=== PATIENT | female | born 1955 | race Caucasian/White ===

== ENCOUNTER 2018-07-15 07:24 | Day surgery (SDC) | payer MEDICARE, OTHER ==
[~2018-07-15 07:24] MED LIST: Lactated Ringers 1,000 ML IV SCH; Sodium Chloride 0.9% 10 ML Syringe FLUSH PRN
[2018-07-15] MEDS ORDERED: fentaNYL 100 MCG/2 ML SDV ONE (09:21)
[2018-07-15] MEDS ORDERED: Propofol 200 MG/20 ML SDV ONE ×2 (09:21→11:02)
[2018-07-15 12:30] VITALS: BP 123/76
--- NOTE | 2018-07-15 15:01 | OR ---
DATE OF SURGERY: 07/15/2018. PRE-OPERATIVE DIAGNOSIS: History of colon polyps. Last colonoscopy in 07/2015 revealed 3 tiny polyps. Previous to that, the patient had 12 polyps in 2014, 9 of which were removed using hot snare. No family history of colon cancer or colon polyps. POST-OPERATIVE DIAGNOSES: 1. Four small polyps removed all using cold forceps. A. 2 mm polyp at 80 cm. B. 3 mm polyp at 60 cm. C. 3 mm polyp x2 at 50 cm. 2. Moderate sigmoid diverticulosis. PROCEDURE: Colonoscopy with polypectomy x4 using cold forceps. SURGEON: Glen Rosario M.D. ANESTHESIA: Monitored anesthesia care. BOWEL PREP: Good. DESCRIPTION OF PROCEDURE: Cece is a 62-year-old female, who was brought to the endoscopy suite after discussing risks and benefits of the procedure. Informed consent was obtained for conscious sedation and colonoscopy with or without biopsy and/or polypectomy. We also discussed possibility of missed lesions. Pre-procedure exam was unremarkable. IV, oxygen, and monitors were placed. The patient was placed in the left lateral decubitus position. Sedation was administered and a digital rectal exam was performed which was unremarkable. Colonoscope was passed into the rectum and slowly advanced all the way to the cecum. Cecum was viewed and photographed. The colonoscope was slowly withdrawn and the mucosa was closed observed in a direct circumferential manner. The ascending colon was unremarkable. The transverse colon revealed 2 mm polyp at 80 cm, and 3 mm polyp at 60 cm, both removed using cold forceps. The descending colon revealed 3 mm polyp x2 at 50 cm, both removed using cold forceps. The sigmoid colon was remarkable for moderate diverticulosis. Retroflexion was performed and rectal mucosa was unremarkable. Scope was removed. The patient tolerated the procedure well. The patient was monitored until that baseline status. Discharge instructions were reviewed and the patient was discharged in good condition. COMPLICATIONS: None. TOTAL TIME: 20 minutes. ESTIMATED BLOOD LOSS: About 1 mL. RECOMMENDATIONS/FOLLOW-UP: We will await results of path report to determine ideal followup interval. I would like to kindly thank Tamera Matson for this referral. DMB: 07/15/2018 11:31:47 MODL: 07/15/2018 12:08:29 /[id number] CAESAR
== END 2018-07-15 12:30 ==
LOC: VM.SDS 07:24
PROVIDERS: ATTEND Family Medicine
DX: Z12.11 Encounter for screening for malignant neoplasm of colon (principal); D12.4 Benign neoplasm of descending colon; D12.5 Benign neoplasm of sigmoid colon; K57.30 Diverticulosis of large intestine without perforation or abscess without bleeding; I10 Essential (primary) hypertension; E78.5 Hyperlipidemia, unspecified; R73.01 Impaired fasting glucose; E66.01 Morbid (severe) obesity due to excess calories; Z68.41 Body mass index [BMI] 40.0-44.9, adult; Z86.010 Personal history of colon polyps; Z87.891 Personal history of nicotine dependence; Z79.82 Long term (current) use of aspirin; Z79.899 Other long term (current) drug therapy
CPT/HCPCS: 00811; 45380; J2704; J3010; J7120

== ENCOUNTER 2021-10-17 06:52 | Day surgery (SDC) | payer MEDICARE, OTHER ==
[~2021-10-17 06:52] MED LIST changes: -Sodium Chloride 0.9% 10 ML Syringe FLUSH PRN
[2021-10-17] MEDS ORDERED: Sodium Chloride 0.9% 10 ML Syringe FLUSH PRN (07:00)
[2021-10-17] MEDS: Lactated Ringers 1,000 ML IV SCH (07:17)
[2021-10-17] MEDS ORDERED: Propofol 200 MG/20 ML SDV ONE ×2 (08:13→08:38)
[2021-10-17] MEDS ORDERED: fentaNYL 100 MCG/2 ML SDV ONE (08:13)
[2021-10-17 09:00] VITALS: PULSE 62
[2021-10-17 09:11] VITALS: BP 117/61
== END 2021-10-17 10:09 | disposition home or self-care (01) ==
LOC: VM.SDS 06:52
PROVIDERS: ATTEND Family Medicine
DX: Z12.11 Encounter for screening for malignant neoplasm of colon (principal); D12.3 Benign neoplasm of transverse colon; D12.4 Benign neoplasm of descending colon; K57.30 Diverticulosis of large intestine without perforation or abscess without bleeding; K64.9 Unspecified hemorrhoids; E66.01 Morbid (severe) obesity due to excess calories; I10 Essential (primary) hypertension; E11.9 Type 2 diabetes mellitus without complications; E78.5 Hyperlipidemia, unspecified; M81.0 Age-related osteoporosis without current pathological fracture; Z98.890 Other specified postprocedural states; Z86.010 Personal history of colon polyps; Z87.891 Personal history of nicotine dependence; Z68.41 Body mass index [BMI] 40.0-44.9, adult
CPT/HCPCS: 82947; 88305; J2704; J3010; J7120

== ENCOUNTER 2022-12-12 14:23 | Inpatient (IN) | payer MEDICARE, OTHER ==
[2022-12-12] MEDS ORDERED: Docusate Sodium 100 MG Cap PO PRN (15:53)
[2022-12-12] MEDS ORDERED: Ondansetron 4 MG Tab.DIS PO PRN (15:53)
[2022-12-12] MEDS: Albuterol/Ipratropium 3.0-0.5 MG/3 ML Neb Soln NEB SCH ×3 (16:37→22:50)
[2022-12-12] MEDS ORDERED: REMDESIVIR 200 MG in Sodium Chloride 0.9% 250 ML IV ONE (17:24)
[2022-12-12] MEDS ORDERED: REMDESIVIR 100 MG in Sodium Chloride 0.9% 100 ML IV SCH (17:30)
[2022-12-12 17:33] LABS: HCO3 VENOUS,POC 34 mmol/L (22-29); O2 SATURATION VENOUS,POC 73 %; PCO2 VENOUS,POC 57 mmHg (41-51); PH VENOUS,POC 7.38 pH (7.32-7.43); PO2 VENOUS,POC 40 mmHg
[2022-12-12] MEDS ORDERED: Potassium Chloride 10 MEQ Tab.ER PO ONE (17:48)
[2022-12-12] MEDS ORDERED: Clobetasol 0.05% Crm 30 GM Tube TOP PRN (18:25)
[2022-12-12] MEDS: Furosemide 40 MG Tab PO SCH (18:56)
[2022-12-12] MEDS: dexAMETHasone 2 MG, dexAMETHasone 4 MG PO SCH ×2 (18:56)
[2022-12-12] MEDS: Doxycycline Monohydrate 100 MG Cap PO SCH ×2 (18:57→22:45)
[2022-12-12] MEDS ORDERED: Iopamidol 755 Mg/ML 100 ML Bottle IVPUSH ONE (21:10)
[2022-12-13] MEDS: Albuterol/Ipratropium 3.0-0.5 MG/3 ML Neb Soln NEB SCH ×5 (02:07→18:47)
[2022-12-13 08:13] LABS: BASOPHILS PERCENT AUTO 0.2 % (0.2-1.2); HEMATOCRIT 36.9 % (33.0-47.0); HEMOGLOBIN 11.5 g/dL (12.0-16.0); IMMATURE GRAN ABSOLUTE AUTO 0.01 x10^3/uL (0.00-0.07); MEAN CORPUSCULAR HEMOGLOBIN 28.2 pg (26.0-32.0); MEAN CORPUSCULAR HGB CONC 31.2 g/dL (32.0-36.0); MEAN CORPUSCULAR VOLUME 90.4 fL (78.0-93.0); MONOCYTES ABSOLUTE AUTO 0.4 x10^3/uL (0.0-0.8); MONOCYTES PERCENT AUTO 6.7 % (2.0-11.0); NEUTROPHILS ABSOLUTE AUTO 5.1 x10^3/uL (1.8-7.7); NEUTROPHILS PERCENT AUTO 86.9 % (50.0-80.0); PLATELET COUNT,PLT 286 x10^3/uL (130-400); RED BLOOD CELL COUNT 4.08 x10^6/uL (4.00-5.50); WHITE BLOOD CELL COUNT,WBC 5.8 x10^3/uL (4.0-10.0)
[2022-12-13 08:27] LABS: LYMPHOCYTES ABSOLUTE AUTO 0.4 x10^3/uL (1.0-4.8)
[2022-12-13 08:39] LABS: A/G RATIO 0.94; ALBUMIN 3.2 g/dL (3.4-5.0); BILIRUBIN TOTAL 0.5 mg/dL (0.2-1.0); CALCIUM 8.6 mg/dL (8.5-10.1); CREATININE 0.7 mg/dL (0.55-1.02); EST CRCL DRUG DOSING (CG) 57.24 mL/min; MAGNESIUM 1.7 mg/dL (1.8-2.4); POTASSIUM,K 3.6 mmol/L (3.5-5.1); PROTEIN TOTAL,TP 6.6 g/dL (6.4-8.2)
[2022-12-13 08:42] LABS: ANION GAP 7.6 mmol/L (5-15)
[2022-12-13 08:51] LABS: C-REACTIVE PROTEIN 7.35 mg/dL (<=0.30)
[2022-12-13] MEDS ORDERED: Magnesium Sulfate/Water 2 GM in Premix Bag 1 BAG IV ONE (08:56)
[2022-12-13] MEDS ORDERED: predniSONE 5 MG Tab PO SCH (09:00)
[2022-12-13] MEDS: Metoprolol Succinate 50 MG Tab.ER PO SCH (10:14)
[2022-12-13] MEDS: Furosemide 40 MG Tab PO SCH (10:15)
[2022-12-13] MEDS: Calcium Carbonate/Vitamin D3 1250 MG-5 MCG Tab PO SCH (10:15)
[2022-12-13] MEDS: Losartan 50 MG Tab PO SCH (10:15)
[2022-12-13] MEDS: Potassium Chloride 10 MEQ Tab.ER PO SCH (10:15)
[2022-12-13] MEDS: Aspirin 81 MG Tab.EC PO SCH (10:16)
[2022-12-13] MEDS: Doxycycline Monohydrate 100 MG Cap PO SCH ×2 (10:16→20:38)
[2022-12-13] MEDS: dexAMETHasone 2 MG, dexAMETHasone 4 MG PO SCH ×2 (10:16)
[2022-12-13] MEDS: atorvaSTATin 10 MG Tab PO SCH (10:16)
[2022-12-13] MEDS: DAPSONE 100 MG PO SCH (10:17)
[2022-12-13] MEDS: Enoxaparin 40 MG/0.4 ML Syringe SUBCUT SCH (10:17)
[2022-12-13] MEDS: metFORMIN 500 MG Tab PO SCH ×2 (10:24→18:47)
[2022-12-13] MEDS: Sodium Chloride 0.9% 10 ML Syringe FLUSH PRN (10:29)
[2022-12-13] MEDS: REMDESIVIR 100 MG in Sodium Chloride 0.9% 100 ML IV SCH (18:47)
[2022-12-13] MEDS: Acetaminophen 325 MG Tab PO PRN (20:38)
[2022-12-14] MEDS: Acetaminophen 325 MG Tab PO PRN ×2 (00:49→21:02)
[2022-12-14] MEDS: Albuterol/Ipratropium 3.0-0.5 MG/3 ML Neb Soln NEB SCH ×7 (00:52→23:01)
[2022-12-14] MEDS: Losartan 50 MG Tab PO SCH (08:17)
[2022-12-14] MEDS: Potassium Chloride 10 MEQ Tab.ER PO SCH (08:18)
[2022-12-14] MEDS: Doxycycline Monohydrate 100 MG Cap PO SCH ×2 (08:18→21:02)
[2022-12-14] MEDS: Calcium Carbonate/Vitamin D3 1250 MG-5 MCG Tab PO SCH (08:18)
[2022-12-14] MEDS: dexAMETHasone 2 MG, dexAMETHasone 4 MG PO SCH ×2 (08:19)
[2022-12-14] MEDS: DAPSONE 100 MG PO SCH (08:21)
[2022-12-14] MEDS: Furosemide 40 MG Tab PO SCH (08:22)
[2022-12-14] MEDS: metFORMIN 500 MG Tab PO SCH ×2 (08:22→18:33)
[2022-12-14] MEDS: atorvaSTATin 10 MG Tab PO SCH (08:24)
[2022-12-14] MEDS: Metoprolol Succinate 50 MG Tab.ER PO SCH (08:26)
[2022-12-14] MEDS: Aspirin 81 MG Tab.EC PO SCH (08:26)
[2022-12-14] MEDS: Enoxaparin 40 MG/0.4 ML Syringe SUBCUT SCH (08:27)
[2022-12-14 08:30] LABS: BASOPHILS PERCENT AUTO 0.1 % (0.2-1.2); HEMATOCRIT 36.5 % (33.0-47.0); HEMOGLOBIN 11.1 g/dL (12.0-16.0); IMMATURE GRAN ABSOLUTE AUTO 0.02 x10^3/uL (0.00-0.07); LYMPHOCYTES ABSOLUTE AUTO 1.2 x10^3/uL (1.0-4.8); LYMPHOCYTES PERCENT AUTO 15.4 % (25.0-50.0); MEAN CORPUSCULAR HGB CONC 30.4 g/dL (32.0-36.0); MEAN CORPUSCULAR VOLUME 92.2 fL (78.0-93.0); MONOCYTES ABSOLUTE AUTO 0.9 x10^3/uL (0.0-0.8); MONOCYTES PERCENT AUTO 11.7 % (2.0-11.0); NEUTROPHILS ABSOLUTE AUTO 5.8 x10^3/uL (1.8-7.7); NEUTROPHILS PERCENT AUTO 72.5 % (50.0-80.0); PLATELET COUNT,PLT 308 x10^3/uL (130-400); RED BLOOD CELL COUNT 3.96 x10^6/uL (4.00-5.50); WHITE BLOOD CELL COUNT,WBC 7.9 x10^3/uL (4.0-10.0)
[2022-12-14 09:07] LABS: A/G RATIO 0.81; BILIRUBIN TOTAL 0.3 mg/dL (0.2-1.0); CALCIUM 8.7 mg/dL (8.5-10.1); CREATININE 0.6 mg/dL (0.55-1.02); EST CRCL DRUG DOSING (CG) 66.78 mL/min; POTASSIUM,K 3.9 mmol/L (3.5-5.1); PROTEIN TOTAL,TP 6.7 g/dL (6.4-8.2)
[2022-12-14 09:09] LABS: ANION GAP 6.9 mmol/L (5-15)
[2022-12-14] MEDS: REMDESIVIR 100 MG in Sodium Chloride 0.9% 100 ML IV SCH (18:35)
[2022-12-15] MEDS: Albuterol/Ipratropium 3.0-0.5 MG/3 ML Neb Soln NEB SCH ×3 (03:01→11:25)
[2022-12-15 07:10] LABS: BASOPHILS PERCENT AUTO 0.1 % (0.2-1.2); HEMATOCRIT 35.5 % (33.0-47.0); HEMOGLOBIN 10.7 g/dL (12.0-16.0); IMMATURE GRAN ABSOLUTE AUTO 0.02 x10^3/uL (0.00-0.07); LYMPHOCYTES ABSOLUTE AUTO 1.7 x10^3/uL (1.0-4.8); LYMPHOCYTES PERCENT AUTO 19.3 % (25.0-50.0); MEAN CORPUSCULAR HEMOGLOBIN 28.2 pg (26.0-32.0); MEAN CORPUSCULAR HGB CONC 30.1 g/dL (32.0-36.0); MEAN CORPUSCULAR VOLUME 93.7 fL (78.0-93.0); MONOCYTES ABSOLUTE AUTO 0.8 x10^3/uL (0.0-0.8); MONOCYTES PERCENT AUTO 9.6 % (2.0-11.0); NEUTROPHILS ABSOLUTE AUTO 6.2 x10^3/uL (1.8-7.7); NEUTROPHILS PERCENT AUTO 70.8 % (50.0-80.0); PLATELET COUNT,PLT 275 x10^3/uL (130-400); RED BLOOD CELL COUNT 3.79 x10^6/uL (4.00-5.50); WHITE BLOOD CELL COUNT,WBC 8.8 x10^3/uL (4.0-10.0)
[2022-12-15 07:39] LABS: A/G RATIO 0.97; ALBUMIN 2.9 g/dL (3.4-5.0); ANION GAP 6.3 mmol/L (5-15); BILIRUBIN TOTAL 0.3 mg/dL (0.2-1.0); C-REACTIVE PROTEIN 1.99 mg/dL (<=0.30); CALCIUM 8.5 mg/dL (8.5-10.1); CREATININE 0.7 mg/dL (0.55-1.02); EST CRCL DRUG DOSING (CG) 57.3 mL/min; POTASSIUM,K 4.3 mmol/L (3.5-5.1); PROTEIN TOTAL,TP 5.9 g/dL (6.4-8.2)
[2022-12-15] MEDS: metFORMIN 500 MG Tab PO SCH ×2 (09:38→17:40)
[2022-12-15] MEDS: Enoxaparin 40 MG/0.4 ML Syringe SUBCUT SCH (09:38)
[2022-12-15] MEDS: Furosemide 40 MG Tab PO SCH (09:39)
[2022-12-15] MEDS: Potassium Chloride 10 MEQ Tab.ER PO SCH (09:39)
[2022-12-15] MEDS: dexAMETHasone 2 MG, dexAMETHasone 4 MG PO SCH ×2 (09:39)
[2022-12-15] MEDS: atorvaSTATin 10 MG Tab PO SCH (09:39)
[2022-12-15] MEDS: Calcium Carbonate/Vitamin D3 1250 MG-5 MCG Tab PO SCH (09:39)
[2022-12-15] MEDS: DAPSONE 100 MG PO SCH (09:40)
[2022-12-15] MEDS: Doxycycline Monohydrate 100 MG Cap PO SCH ×2 (09:40→21:45)
[2022-12-15] MEDS: Aspirin 81 MG Tab.EC PO SCH (09:40)
[2022-12-15] MEDS: Losartan 50 MG Tab PO SCH (09:44)
[2022-12-15] MEDS: Metoprolol Succinate 50 MG Tab.ER PO SCH (09:44)
[2022-12-15] MEDS ORDERED: Clobetasol 0.05% Crm 30 GM Tube TOP PRN (11:48)
[2022-12-15] MEDS ORDERED: Albuterol/Ipratropium 3.0-0.5 MG/3 ML Neb Soln NEB PRN (12:16)
[2022-12-15] MEDS: Sodium Chloride 0.9% 10 ML Syringe FLUSH PRN (14:07)
[2022-12-15] MEDS: REMDESIVIR 100 MG in Sodium Chloride 0.9% 100 ML IV SCH (17:41)
[2022-12-15] MEDS: Acetaminophen 325 MG Tab PO PRN (22:09)
[2022-12-16 06:51] LABS: BASOPHILS PERCENT AUTO 0.1 % (0.2-1.2); EOSINOPHILS PERCENT AUTO 0.2 % (0.0-4.0); HEMATOCRIT 35.9 % (33.0-47.0); HEMOGLOBIN 10.9 g/dL (12.0-16.0); IMMATURE GRAN ABSOLUTE AUTO 0.01 x10^3/uL (0.00-0.07); LYMPHOCYTES ABSOLUTE AUTO 1.9 x10^3/uL (1.0-4.8); LYMPHOCYTES PERCENT AUTO 20.9 % (25.0-50.0); MEAN CORPUSCULAR HEMOGLOBIN 27.7 pg (26.0-32.0); MEAN CORPUSCULAR HGB CONC 30.4 g/dL (32.0-36.0); MEAN CORPUSCULAR VOLUME 91.3 fL (78.0-93.0); MONOCYTES ABSOLUTE AUTO 0.9 x10^3/uL (0.0-0.8); NEUTROPHILS ABSOLUTE AUTO 6.3 x10^3/uL (1.8-7.7); NEUTROPHILS PERCENT AUTO 68.7 % (50.0-80.0); PLATELET COUNT,PLT 279 x10^3/uL (130-400); RED BLOOD CELL COUNT 3.93 x10^6/uL (4.00-5.50); WHITE BLOOD CELL COUNT,WBC 9.1 x10^3/uL (4.0-10.0)
[2022-12-16 07:11] LABS: A/G RATIO 0.78; ALANINE AMINOTRANSFERASE,ALT 42 U/L (14-59); ALBUMIN 2.8 g/dL (3.4-5.0); ALKALINE PHOSPHATASE 85 U/L (46-116); ASPARTATE AMNIOTRANSFERASE,AST 14 U/L (15-37); BILIRUBIN TOTAL 0.4 mg/dL (0.2-1.0); BLOOD UREA NITROGEN,BUN 21 mg/dL (7-18); CALCIUM 8.6 mg/dL (8.5-10.1); CARBON DIOXIDE,CO2 40 mmol/L (21-32); CHLORIDE,CL 100 mmol/L (98-107); CREATININE 0.6 mg/dL (0.55-1.02); GLUCOSE RANDOM 150 mg/dL (70-99); POTASSIUM,K 3.9 mmol/L (3.5-5.1); PROTEIN TOTAL,TP 6.4 g/dL (6.4-8.2); SODIUM,NA 143 mmol/L (136-145)
[2022-12-16 07:12] LABS: ANION GAP 6.9 mmol/L (5-15); ESTIMATED GFR 97 mL/min (>=60)
[2022-12-16] MEDS: Doxycycline Monohydrate 100 MG Cap PO SCH ×2 (09:17→20:09)
[2022-12-16] MEDS: Potassium Chloride 10 MEQ Tab.ER PO SCH (09:18)
[2022-12-16] MEDS: Losartan 50 MG Tab PO SCH (09:18)
[2022-12-16] MEDS: metFORMIN 500 MG Tab PO SCH ×2 (09:19→18:13)
[2022-12-16] MEDS: atorvaSTATin 40 MG Tab PO SCH (09:21)
[2022-12-16] MEDS: Calcium Carbonate/Vitamin D3 1250 MG-5 MCG Tab PO SCH (09:22)
[2022-12-16] MEDS: Furosemide 40 MG Tab PO SCH (09:22)
[2022-12-16] MEDS: DAPSONE 100 MG PO SCH (09:23)
[2022-12-16] MEDS: Aspirin 81 MG Tab.EC PO SCH (09:23)
[2022-12-16] MEDS: dexAMETHasone 2 MG, dexAMETHasone 4 MG PO SCH ×2 (09:23)
[2022-12-16] MEDS: Metoprolol Succinate 50 MG Tab.ER PO SCH (09:24)
[2022-12-16] MEDS: Enoxaparin 40 MG/0.4 ML Syringe SUBCUT SCH (09:25)
[2022-12-16] MEDS: Acetaminophen 325 MG Tab PO PRN (14:37)
[2022-12-16] MEDS: REMDESIVIR 100 MG in Sodium Chloride 0.9% 100 ML IV SCH (18:15)
[2022-12-16] MEDS: Sodium Chloride 0.9% 10 ML Syringe FLUSH PRN (20:34)
[2022-12-17 06:46] LABS: HEMATOCRIT 37.6 % (33.0-47.0); HEMOGLOBIN 11.7 g/dL (12.0-16.0); MEAN CORPUSCULAR HEMOGLOBIN 27.7 pg (26.0-32.0); MEAN CORPUSCULAR HGB CONC 31.1 g/dL (32.0-36.0); MEAN CORPUSCULAR VOLUME 88.9 fL (78.0-93.0); RED BLOOD CELL COUNT 4.23 x10^6/uL (4.00-5.50); WHITE BLOOD CELL COUNT,WBC 8.3 x10^3/uL (4.0-10.0)
[2022-12-17 07:08] LABS: A/G RATIO 0.97; ALBUMIN 2.9 g/dL (3.4-5.0); ANION GAP 7.1 mmol/L (5-15); BILIRUBIN TOTAL 0.4 mg/dL (0.2-1.0); CREATININE 0.6 mg/dL (0.55-1.02); EST CRCL DRUG DOSING (CG) 66.85 mL/min; POTASSIUM,K 4.1 mmol/L (3.5-5.1); PROTEIN TOTAL,TP 5.9 g/dL (6.4-8.2)
[2022-12-17] MEDS: Potassium Chloride 10 MEQ Tab.ER PO SCH (09:10)
[2022-12-17] MEDS: Calcium Carbonate/Vitamin D3 1250 MG-5 MCG Tab PO SCH (09:11)
[2022-12-17] MEDS: Doxycycline Monohydrate 100 MG Cap PO SCH ×2 (09:11→20:28)
[2022-12-17] MEDS: dexAMETHasone 2 MG, dexAMETHasone 4 MG PO SCH ×2 (09:11)
[2022-12-17] MEDS: Aspirin 81 MG Tab.EC PO SCH (09:12)
[2022-12-17] MEDS: Furosemide 40 MG Tab PO SCH (09:12)
[2022-12-17] MEDS: Losartan 50 MG Tab PO SCH (09:13)
[2022-12-17] MEDS: atorvaSTATin 40 MG Tab PO SCH (09:13)
[2022-12-17] MEDS: DAPSONE 100 MG PO SCH (09:14)
[2022-12-17] MEDS: Metoprolol Succinate 50 MG Tab.ER PO SCH (09:15)
[2022-12-17] MEDS: Enoxaparin 40 MG/0.4 ML Syringe SUBCUT SCH (09:16)
[2022-12-17] MEDS: metFORMIN 500 MG Tab PO SCH ×2 (09:17→17:45)
[2022-12-18] MEDS: dexAMETHasone 2 MG, dexAMETHasone 4 MG PO SCH ×2 (08:44)
[2022-12-18] MEDS: DAPSONE 100 MG PO SCH (08:45)
[2022-12-18] MEDS: Aspirin 81 MG Tab.EC PO SCH (08:45)
[2022-12-18] MEDS: atorvaSTATin 40 MG Tab PO SCH (08:45)
[2022-12-18] MEDS: Losartan 50 MG Tab PO SCH (08:45)
[2022-12-18] MEDS: Furosemide 40 MG Tab PO SCH (08:45)
[2022-12-18] MEDS: Doxycycline Monohydrate 100 MG Cap PO SCH (08:45)
[2022-12-18] MEDS: Calcium Carbonate/Vitamin D3 1250 MG-5 MCG Tab PO SCH (08:45)
[2022-12-18] MEDS: Metoprolol Succinate 50 MG Tab.ER PO SCH (08:45)
[2022-12-18] MEDS: Potassium Chloride 10 MEQ Tab.ER PO SCH (08:45)
[2022-12-18] MEDS: metFORMIN 500 MG Tab PO SCH (08:46)
[2022-12-18] MEDS: Enoxaparin 40 MG/0.4 ML Syringe SUBCUT SCH (08:46)
[2022-12-18 10:51] VITALS: BP 124/57; PULSE 66
== END 2022-12-18 11:35 | disposition home or self-care (01) | DRG 177 ==
LOC: VM.MS 15:24
PROVIDERS: ADMIT Physician Assistant; ATTEND Physician Assistant
PROC: 8E0ZXY6 Isolation (ICD-10-PCS; principal; 2022-12-12)
PROC: XW033E5 Introduction of Remdesivir Anti-infective into Peripheral Vein, Percutaneous Approach, New Technology Group 5 (ICD-10-PCS; 2022-12-12)
PROC: 3E0DX3Z Introduction of Anti-inflammatory into Mouth and Pharynx, External Approach (ICD-10-PCS; 2022-12-12)
DX: U07.1 COVID-19 (principal); J12.82 Pneumonia due to coronavirus disease 2019; J96.01 Acute respiratory failure with hypoxia; L12.0 Bullous pemphigoid; J44.9 Chronic obstructive pulmonary disease, unspecified; I10 Essential (primary) hypertension; E78.00 Pure hypercholesterolemia, unspecified; E78.5 Hyperlipidemia, unspecified; E87.6 Hypokalemia; E11.9 Type 2 diabetes mellitus without complications; D64.9 Anemia, unspecified; Z79.82 Long term (current) use of aspirin; Z79.899 Other long term (current) drug therapy; Z88.8 Allergy status to other drugs, medicaments and biological substances; Z86.010 Personal history of colon polyps
CPT/HCPCS: 36415; 71275; 80053; 82728; 82803; 82947; 83615; 83735; 83880; 85025; 85027; 86140; 87040; 94640; 94760; A9270-GY; J0248; J1650; J3475; J3490; J7050; J7620-GY; J8540; Q9967